=== PATIENT | female | born 1950 | race Hispanic/Latino ===

== ENCOUNTER 2019-01-10 18:53 | Inpatient (IN) | payer MEDICARE, SELFPAY ==
[2019-01-10 18:54] VITALS: BP 159/88; PULSE 72; RESP 16; TEMP 36.4; O2SAT 98; BMI 32.1
--- NOTE | 2019-01-10 19:17 | RAD_ITS ---
STUDY: X-RAY CHEST REASON FOR EXAM: Female, 68 years old. Chest pain TECHNIQUE: Single frontal view of the chest. COMPARISON: None. FINDINGS: The lungs are clear and expanded. There is no demonstrated pleural abnormality. Normal size heart. Normal mediastinum and lucien. Normal visualized pulmonary arteries. Normal visualized aortic arch and descending thoracic aorta. Normal visualized thoracic spine. Normal visualized ribs, clavicles, and shoulders. There is no demonstrated abnormality of the visualized soft tissue structures of the upper abdomen. RAD/Chest 1 View (Portable) IMPRESSION: Normal x-ray examination of the chest. Electronically Signed: Joel Robison MD at 20:14 EDT , Service support ,
--- NOTE | 2019-01-10 19:17 | EKG12_ITS ---
Test Reason : CP Blood Pressure : / mmHG Vent. Rate : 067 BPM Atrial Rate : 067 BPM P-R Int : 136 ms QRS Dur : 084 ms QT Int : 380 ms P-R-T Axes : 058 -05 032 degrees QTc Int : 401 ms Normal sinus rhythm with sinus arrhythmia Possible Left atrial enlargement Nonspecific T wave abnormality Abnormal ECG Confirmed by MELA EDWARDS, LOYD ([id number]), senior technical editor PENNY MENG ([id number]) on 01/14/2019 9:47:12 AM Referred By: Cruz Frausto Confirmed By:LUKE PLAZA MD
--- NOTE | 2019-01-10 19:19 | ED.DCSUM_ITS ---
- ER Visit Summary Date of Service: 01/10/19 Chief Complaint: Chest pain History of Present Illness: The patient is a 68 F presenting with chest pain. Patient states this started this morning. Pain has been intermittent throughout the day. Pain is substernal with no radiation. She does not recall anything that makes this better or worse. She has a history of hypertension. She is from [place] and is here for her 's work. Denies history of PE/DVT. She is not a smoker. Physical Examination: Vitals are stable. Patient is afebrile. Alert no acute distress. HEENT exam is unremarkable. Neck is supple. Lungs are clear and equal bilaterally. Heart is regular rate and rhythm. Abdomen is soft nontender nondistended. Extremities are unremarkable. Skin is warm and dry. No focal neurologic deficit. Remainder of exam is unremarkable. Emergency Department Course and Treatment: She was given aspirin, morphine on arrival. EKG is sinus rhythm rate of 67 with no acute ischemic changes. Chest x-ray shows no acute process. CBC, chemistries unremarkable. Troponin is negative. D-dimer normal. Patient is resting comfortably on reevaluation. Will discuss with hospitalist for admission. Disposition: Observation Impression: Chest pain This note was generated with shopandsave dictation software. It may contain incorrect words, spelling, and punctuation that were not noted in review of the chart prior to signing ED Disposition - Plan for ED Patient: Referrals: [facility] Doctor,Out of [NON-STAFF] -
[2019-01-10 19:25] VITALS: O2SAT 98
[2019-01-10] MEDS: Aspirin 81 MG TAB.CHEW 324 MG PO (19:29)
[2019-01-10 19:32] LABS: Absolute Lymphocyte Count 1.68 X10^3/uL (0.83-4.51); Basophil# 0.03 X10^3/uL; Basophil% 0.6 % (0-1); Eosinophil# 0.08 X10^3/uL; Eosinophils% 1.5 % (0-5); Hematocrit 43.4 % (37-47); Hemoglobin 14.7 g/dL (12.0-15.0); Lymphocyte # 1.68 X10^3/ul (4.0); Lymphocyte % 31.9 % (19-41); Mean Corp Hgb Conc 33.9 g/dL (32-36); Mean Corpuscular Hgb 29.1 pg (27.0-32.0); Mean Corpuscular Volume 85.9 fL (81-99); Mean Platelet Vol. 10.5 fl (6.2-12.0); Monocyte# 0.48 X10^3/uL; Monocyte% 9.1 % (0-10); NRBC Flagged by Analyzer 0 % (0-5); Neutrophil # 2.98 X10^3/uL (2.7-7.7); Neutrophil % 56.7 % (47-70); Platelet Count 215 K/mm3 (150-450); RBC Distribution Width CV 12.8 % (11.6-14.6); RBC Distribution Width SD 39.6 fl (35.1-43.9); Red Blood Count 5.05 M/mm3 (4.2-5.4); White Blood Count 5.3 K/mm3 (4.4-11.0)
[2019-01-10 19:40] LABS: D-Dimer Quantitative (DVT/PE) 0.47 FEU/ug/m (0.27-0.49)
[2019-01-10 19:47] LABS: Anion Gap 6 (5-15); BUN 11 mg/dL (7-18); BUN/Creat Ratio 12.2 RATIO (10-20); Calcium,Total 9.4 mg/dL (8.5-10.1); Chloride 104 mmol/L (98-107); EST Glomerular Filtration Rate 66 mL/min (>60); Est Glom Filt Rate - Afr Amer 80 mL/min (>60); Estimated Creatinine Clearance 42.97 ml/min; Glucose 123 mg/dL (74-106); Potassium 3.6 mmol/L (3.5-5.1); Sodium Level 139 mmol/L (136-145)
[2019-01-10 20:05] VITALS: BP 143/80; PULSE 63; RESP 15; O2SAT 98
[2019-01-10 21:15] VITALS: BP 137/95; PULSE 79; RESP 26; O2SAT 98
--- NOTE | 2019-01-10 21:47 | HP.PCM_ITS ---
Problem List (1) Atypical chest pain Status: Acute (2) Hypertension Status: Chronic (3) Hypothyroidism Status: Chronic History of Present Illness Date of Admission: 01/10/19 Chief Complaint: Chest pain The patient is a 68 year old F with history of hypertension came to ED with chest pain that is started today in the morning. Chest pain was midsternal, 9- 10/10 in intensity, localized felt like something sitting heavy on the chest associated with mild shortness of breath. Patient denies dizziness or near syncope or syncope. No diaphoresis. She also had cough mainly dry cough started yesterday. In ED, she got morphine 4 mg, aspirin 325 mg and her chest pain is much better 2-3/10 intensity She had chest pain that was different from today about 5 years ago but seems she did not seek any medical attention. In ED, initial vitals BP 159/88 heart rate 72 with no hypoxia, fever or tachypnea. EKG shows normal sinus rhythm with sinus arrhythmia at [address]-T changes suggestive of ischemia. [] Past Medical History Past Medical History (Chronic Problems): Chronic Problems Hypertension (Chronic) Hypothyroidism (Chronic) Allergies No Known Allergies Allergy (Verified 01/10/19 18:54) Home Medications: Ambulatory Orders Medication Instructions Recorded Amlodipine Besylate/Benazepril 1 ea PO DAILY 01/10/19 [Amlodipine-Benazepril 10-20 mg] Aspirin [Aspirin, Baby] 1 tab PO DAILY 01/10/19 Calcium, Magnesium And Zinc 1 tab PO DAILY 01/10/19 Cholecalciferol (Vitamin D3) 2,000 unit PO DAILY 01/10/19 [Vitamin D3] Escitalopram Oxalate 1 tab PO DAILY 01/10/19 Levothyroxine Sodium 50 mcg PO DAILY 01/10/19 Smoking Status: Never smoker Tobacco Use: Non-smoker Alcohol: None Drugs: None - *Family History Paternal History Items: No pertinent history - Parent of natural Review of Systems Constitutional: Denies: Chills, Fever, Weight Change HEENT: Denies: Head Aches, Sinus Congestion, Sinus Drainage Cardiovascular: Reports: Chest Pain, Chest Pressure. Denies: Palpitations Respiratory: Reports: Cough, Shortness of Breath, Shortness of breath at rest. Denies: Sputum production Gastrointestinal: Denies: Abdominal Pain, Nausea, Vomiting Genitourinary: Denies: Dysuria, Frequency, Hesitancy, Urgency Musculoskeletal: Denies: Joint Pain, Joint Tenderness Skin: Denies: Rash, Wounds Neurological: Denies: Numbness, Tingling, Focal weakness Psychiatric: Denies: Anxiety, Depression, Homicidal Ideations, Suicidal Ideations Hematologic/ Lymphatic: Denies: Easy Bruising, Easy Bleeding VTE Information - Inpt Only VTE Present on Admission: No VTE Mechan Device Prophylaxis: None VTE Pharm Prophylaxis ordered?: Yes Patient Problems: Active and Suspected Problems Atypical chest pain (Acute) - Physical Exam General: Alert, Oriented x3, Cooperative HEENT: Atraumatic, PERRLA, EOMI, Normocephalic Neck: Supple, No JVD, Negative Carotid Bruits Lungs: Clear to auscultation, Normal air movement, No rhonchi, No wheeze, No ral es Cardiovascular: Regular rate, Regular Rhythm, Normal S1, Normal S2, No murmurs Abdomen: Bowel Sounds Present, Soft, Non Tender, Non-Distended Extremities: No edema, Capillary Refill Less than 3 Seconds Skin: No rashes, No breakdown Musculoskeletal: No Tenderness to Palpation of Joints or Extremities Neurological: Cranial nerves II-XII grossly intact, Deep Tendon Reflexes 2+/4 and Symmetrical, Neuro grossly intact Psych/Mental Status: Normal Affect, Appropriate Vital Signs Temp Pulse Resp BP Pulse Ox 97.5 F L 79 26 H 137/95 H 98 01/10/19 18:54 01/10/19 21:15 01/10/19 21:15 01/10/19 21:15 01/10/19 21:15 Oxygen Delivery Method Room Air Weight: 164 lb 10.965 oz Body Mass Index (BMI) 32.1 Laboratory Tests Past 24 Hrs 01/10/19 01/10/19 01/10/19 19:03 19:03 19:03 WBC 5.3 RBC 5.05 Hgb 14.7 Hct 43.4 MCV 85.9 MCH 29.1 MCHC 33.9 RDW Std Deviation 39.6 RDW Coeff of Alma 12.8 Plt Count 215 MPV 10.5 Immature Gran % (Auto) 0.200 Neut % (Auto) 56.7 Lymph % (Auto) 31.9 [place] % (Auto) 9.1 Eos % (Auto) 1.5 Baso % (Auto) 0.6 Absolute Neuts (auto) 3.0 Absolute Lymphs (auto) 1.68 Nucleated RBC % 0 D-Dimer Quant (PE/DVT) 0.47 Sodium 139 Potassium 3.6 Chloride 104 Carbon Dioxide 29.0 Anion Gap 6 BUN 11 Creatinine 0.90 Estim Creat Clear Calc 42.97 Est GFR (MDRD) Af Amer 80 Est GFR (MDRD) Non-Af 66 BUN/Creatinine Ratio 12.2 Glucose 123 H Calcium 9.4 Troponin I < 0.015 Assessment/Plan All Active Problems Atypical chest pain (Acute) The patient is a 68 year old F with history of hypertension came to ED with chest pain that is started today in the morning. Chest pain was midsternal, 9- 10/10 in intensity, localized felt like something sitting heavy on the chest associated with mild shortness of breath. Patient denies dizziness or near syncope or syncope. No diaphoresis. She also had cough mainly dry cough started yesterday. In ED, she got morphine 4 mg, aspirin 325 mg and her chest pain is much better 2-3/10 intensity She had chest pain that was different from today about 5 years ago but seems she did not seek any medical attention. In ED, initial vitals BP 159/88 heart rate 72 with no hypoxia, fever or tachypnea. EKG shows normal sinus rhythm with sinus arrhythmia at [address]-T changes suggestive of ischemia. [] 1. Atypical chest pain associated shortness of breath: Patient is being admitted in PCU to rule out ACS. Serial troponin enzymes. Patient visiting [place] from [place]. She wants to go back to [place] tomorrow. Patient is advised for treadmill nuclear stress test on Saturday if cardiac enzymes are negative. Fasting profile tomorrow a.m. 2. Hypertension: Triage BP 159/88 heart rate 72. Most recent 137/95. Resume amlodipine benazepril home medication. 3. Other comorbidities include hypothyroidism with history of parathyroid adenoma in 1/4 glands status post parathyroidectomy: TSH and free T4 tomorrow a.m. 4. HypERglycemia: Glucose 123. A1c tomorrow a.m to rule out diabetes mellitus. 5. DVT prophylaxis: Moderate risk on Lovenox 40 mg subcu daily Code Visit OBSV E&M: 49349 Initial observation care L3
[2019-01-10 22:17] VITALS: PULSE 67; BMI 31.1; BMI 31.2
[2019-01-10 22:30] VITALS: BP 151/79; PULSE 68; RESP 16; TEMP 36.9; O2SAT 97
--- NOTE | 2019-01-10 22:47 | EKG12_ITS ---
Test Reason : ADMIT Blood Pressure : / mmHG Vent. Rate : 064 BPM Atrial Rate : 064 BPM P-R Int : 144 ms QRS Dur : 082 ms QT Int : 402 ms P-R-T Axes : 056 005 025 degrees QTc Int : 414 ms Normal sinus rhythm Nonspecific T wave abnormality Abnormal ECG When compared with ECG of 10-JAN-2019 18:59, MANUAL COMPARISON REQUIRED, DATA IS UNCONFIRMED Confirmed by MARTHA SALAZAR ([id number]), supervising film or videotape editor PENNY MENG ([id number]) on 01/14/2019 10:45:32 AM Referred By: Cruz Frausto Confirmed By:MARTHA SALAZAR
[2019-01-11] VITALS (12 sets, daily range): BP systolic 102–144; BP diastolic 63–84; PULSE 60–90; RESP 12–18; TEMP 36.6–37; O2SAT 92–98
[2019-01-11] MEDS: 0.9% Normal Saline 1,000 ML 100 ML IV (00:45)
[2019-01-11 06:52] LABS: Cholesterol 121 mg/dL (200); High Density Lipoprotein 70 mg/dL; T4 Free Direct 0.96 ng/dL (0.76-1.46); Thyroid Stim Hormone (TSH) 4.48 uIU/mL (0.358-3.74); Triglycerides 34 mg/dL; Very Low Density Lipoprotein 7 mg/dL (5-40)
[2019-01-11] MEDS: Levothyroxine 50 MCG Tablet PO (06:58)
[2019-01-11] MEDS: Enoxaparin 40 MG/0.4 ML Syringe SC (08:53)
[2019-01-11] MEDS: Escitalopram Oxalate 10 MG Tablet PO (08:54)
[2019-01-11] MEDS: Aspirin E.C. 81 MG Tablet PO (08:54)
[2019-01-11 09:00] LABS: Hemoglobin A1c 5.3 % (4.2-6.3)
--- NOTE | 2019-01-11 10:52 | PCM.PROGNOTE ---
<Gemma Whittington - Last Filed: 01/11/19 11:05> Patient Problems: Active and Suspected Problems Atypical chest pain (Acute) Subjective: Patient seen and examined. Denies further chest pain overnight. Plan for stress test in a.m. - Physical Exam General: Alert, Oriented x3, Cooperative HEENT: Atraumatic, PERRLA, EOMI, Normocephalic Neck: Supple, No JVD, Negative Carotid Bruits Lungs: Clear to auscultation, Normal air movement Cardiovascular: Regular rate, Regular Rhythm, Normal S1, Normal S2, No murmurs Abdomen: Bowel Sounds Present, Soft, Non Tender, Non-Distended Extremities: No clubbing, No cyanosis, No edema, Capillary Refill Less than 3 Seconds Skin: No rashes, No breakdown Musculoskeletal: No Tenderness to Palpation of Joints or Extremities Neurological: Cranial nerves II-XII grossly intact, Neuro grossly intact Psych/Mental Status: Normal Affect, Appropriate Vital Signs Temp Pulse Resp BP Pulse Ox 97.8 F 60 14 144/79 H 97 01/11/19 08:34 01/11/19 08:34 01/11/19 08:34 01/11/19 08:34 01/11/19 08:34 Oxygen Delivery Method Room Air Weight: 159 lb 13.362 oz Body Mass Index (BMI) 31.1 Intake and Output for Last 24 Hours 01/09/19 01/10/19 01/11/19 23:59 23:59 23:59 Intake Total 1338.33 / 1338.33 Balance 1338.33 / 1338.33 Microbiology Past 72 Hours 01/10/19 23:15 Respiratory Panel (PCR) - Final Interface Orders Laboratory Tests Past 24 Hrs 01/10/19 01/10/19 01/10/19 19:03 19:03 19:03 WBC 5.3 RBC 5.05 Hgb 14.7 Hct 43.4 MCV 85.9 MCH 29.1 MCHC 33.9 RDW Std Deviation 39.6 RDW Coeff of Alma 12.8 Plt Count 215 MPV 10.5 Immature Gran % (Auto) 0.200 Neut % (Auto) 56.7 Lymph % (Auto) 31.9 [place] % (Auto) 9.1 Eos % (Auto) 1.5 Baso % (Auto) 0.6 Absolute Neuts (auto) 3.0 Absolute Lymphs (auto) 1.68 Nucleated RBC % 0 D-Dimer Quant (PE/DVT) 0.47 Sodium 139 Potassium 3.6 Chloride 104 Carbon Dioxide 29.0 Anion Gap 6 BUN 11 Creatinine 0.90 Estim Creat Clear Calc 42.97 Est GFR (MDRD) Af Amer 80 Est GFR (MDRD) Non-Af 66 BUN/Creatinine Ratio 12.2 Glucose 123 H Hemoglobin A1c Calcium 9.4 Magnesium Troponin I < 0.015 Triglycerides Cholesterol LDL Cholesterol VLDL Cholesterol HDL Cholesterol TSH Free T4 01/10/19 01/10/19 01/11/19 19:03 23:17 01:50 WBC RBC Hgb Hct MCV MCH MCHC RDW Std Deviation RDW Coeff of [place] Plt Count MPV Immature Gran % (Auto) Neut % (Auto) Lymph % (Auto) [place] % (Auto) Eos % (Auto) Baso % (Auto) Absolute Neuts (auto) Absolute Lymphs (auto) Nucleated RBC % D-Dimer Quant (PE/DVT) Sodium Potassium Chloride Carbon Dioxide Anion Gap BUN Creatinine Estim Creat Clear Calc Est GFR (MDRD) Af Amer Est GFR (MDRD) Non-Af BUN/Creatinine Ratio Glucose Hemoglobin A1c Calcium Magnesium 2.0 Troponin I < 0.015 < 0.015 Triglycerides Cholesterol LDL Cholesterol VLDL Cholesterol HDL Cholesterol TSH Free T4 01/11/19 01/11/19 05:12 05:17 WBC RBC Hgb Hct MCV MCH MCHC RDW Std Deviation RDW Coeff of Alma Plt Count MPV Immature Gran % (Auto) Neut % (Auto) Lymph % (Auto) [place] % (Auto) Eos % (Auto) Baso % (Auto) Absolute Neuts (auto) Absolute Lymphs (auto) Nucleated RBC % D-Dimer Quant (PE/DVT) Sodium Potassium Chloride Carbon Dioxide Anion Gap BUN Creatinine Estim Creat Clear Calc Est GFR (MDRD) Af Amer Est GFR (MDRD) Non-Af BUN/Creatinine Ratio Glucose Hemoglobin A1c 5.3 Calcium Magnesium Troponin I < 0.015 Triglycerides 34 Cholesterol 121 LDL Cholesterol 44 VLDL Cholesterol 7 HDL Cholesterol 70 TSH 4.48 H Free T4 0.96 Medical Necessity - Tobacco Use Smoking Status: Never smoker Tobacco Use: Non-smoker Assessment/Plan All Active Problems Atypical chest pain (Acute) 1. Atypical chest pain, rule out ACS-EKG without ST-T changes. Troponin negative. Plan for stress test in a.m. 2. Hypertension-stable, continue home amlodipine, benazepril regimen. 3. Hypothyroidism-history of parathyroid adenoma status post parathyroidectomy. TSH 4.4. Free T4 normal. Continue home Synthroid regimen. 4. Depression-continue home escitalopram regimen. DVT prophylaxis-Lovenox subcu This patient was seen by HILLARY Prado under the supervision of Dr. Moore. <Agata Moore Melvina - Last Filed: 01/11/19 12:13> - Physical Exam Vital Signs Temp Pulse Resp BP Pulse Ox 97.8 F 60 14 144/79 H 97 01/11/19 08:34 01/11/19 08:34 01/11/19 08:34 01/11/19 08:34 01/11/19 08:34 Oxygen Delivery Method Room Air Weight: 159 lb 13.362 oz Body Mass Index (BMI) 31.1 Intake and Output for Last 24 Hours 01/09/19 01/10/19 01/11/19 23:59 23:59 23:59 Intake Total 1758.33 / 1758.33 Balance 1758.33 / 1758.33 Microbiology Past 72 Hours 01/10/19 23:15 Respiratory Panel (PCR) - Final Interface Orders Laboratory Tests Past 24 Hrs 01/10/19 01/10/19 01/10/19 19:03 19:03 19:03 WBC 5.3 RBC 5.05 Hgb 14.7 Hct 43.4 MCV 85.9 MCH 29.1 MCHC 33.9 RDW Std Deviation 39.6 RDW Coeff of Alma 12.8 Plt Count 215 MPV 10.5 Immature Gran % (Auto) 0.200 Neut % (Auto) 56.7 Lymph % (Auto) 31.9 [place] % (Auto) 9.1 Eos % (Auto) 1.5 Baso % (Auto) 0.6 Absolute Neuts (auto) 3.0 Absolute Lymphs (auto) 1.68 Nucleated RBC % 0 D-Dimer Quant (PE/DVT) 0.47 Sodium 139 Potassium 3.6 Chloride 104 Carbon Dioxide 29.0 Anion Gap 6 BUN 11 Creatinine 0.90 Estim Creat Clear Calc 42.97 Est GFR (MDRD) Af Amer 80 Est GFR (MDRD) Non-Af 66 BUN/Creatinine Ratio 12.2 Glucose 123 H Hemoglobin A1c Calcium 9.4 Magnesium Troponin I < 0.015 Triglycerides Cholesterol LDL Cholesterol VLDL Cholesterol HDL Cholesterol TSH Free T4 01/10/19 01/10/19 01/11/19 19:03 23:17 01:50 WBC RBC Hgb Hct MCV MCH MCHC RDW Std Deviation RDW Coeff of Alma Plt Count MPV Immature Gran % (Auto) Neut % (Auto) Lymph % (Auto) [place] % (Auto) Eos % (Auto) Baso % (Auto) Absolute Neuts (auto) Absolute Lymphs (auto) Nucleated RBC % D-Dimer Quant (PE/DVT) Sodium Potassium Chloride Carbon Dioxide Anion Gap BUN Creatinine Estim Creat Clear Calc Est GFR (MDRD) Af Amer Est GFR (MDRD) Non-Af BUN/Creatinine Ratio Glucose Hemoglobin A1c Calcium Magnesium 2.0 Troponin I < 0.015 < 0.015 Triglycerides Cholesterol LDL Cholesterol VLDL Cholesterol HDL Cholesterol TSH Free T4 01/11/19 01/11/19 05:12 05:17 WBC RBC Hgb Hct MCV MCH MCHC RDW Std Deviation RDW Coeff of Alma Plt Count MPV Immature Gran % (Auto) Neut % (Auto) Lymph % (Auto) [place] % (Auto) Eos % (Auto) Baso % (Auto) Absolute Neuts (auto) Absolute Lymphs (auto) Nucleated RBC % D-Dimer Quant (PE/DVT) Sodium Potassium Chloride Carbon Dioxide Anion Gap BUN Creatinine Estim Creat Clear Calc Est GFR (MDRD) Af Amer Est GFR (MDRD) Non-Af BUN/Creatinine Ratio Glucose Hemoglobin A1c 5.3 Calcium Magnesium Troponin I < 0.015 Triglycerides 34 Cholesterol 121 LDL Cholesterol 44 VLDL Cholesterol 7 HDL Cholesterol 70 TSH 4.48 H Free T4 0.96 Assessment/Plan Patient seen by Gemma Whittington NP-Janneth under my supervision Patient is a 68-year-old female admitted with a complaint of chest pain which is pressure-like, with no aggravating or relieving factors. She is never had chest pain in the past and does not have any cardiac history. Her risk factors include hypertension. Troponins x3 were negative and she is due for stress test tomorrow morning. Patient seen and examined. She has no complaints. She stated that she wanted to be discharged to go home to [place]. She is driving alone and an [address] to [place]. Patient counseled that would be advisable for her to stay for stress test to be done tomorrow to rule out any cardiac pathology before she is cleared to go on a long drive all the way to [place]. Patient expressed understanding. Review of systems otherwise negative. Labs and vitals reviewed. o/e: Vital Signs Height 5 ft Weight: 159 lb 13.362 oz Weight in Pounds 159.8 lbs Pulse Ox 97 Temperature 97.8 F Pulse Rate 60 Respiratory Rate 14 Blood Pressure [BP] 102/69 Blood Pressure 144/79 Blood Pressure Position [BP] Supine Blood Pressure Position Semi-Fowlers General: Alert, Oriented x3, Cooperative HEENT: Atraumatic, PERRLA, EOMI, Normocephalic Neck: Supple, No JVD, Negative Carotid Bruits Lungs: Clear to auscultation, Normal air movement Cardiovascular: Regular rate, Regular Rhythm, Normal S1, Normal S2, No murmurs Abdomen: Bowel Sounds Present, Soft, Non Tender, Non-Distended Extremities: No clubbing, No cyanosis, No edema, Capillary Refill Less than 3 Seconds Skin: No rashes, No breakdown Musculoskeletal: No Tenderness to Palpation of Joints or Extremities Neurological: Cranial nerves II-XII grossly intact, Neuro grossly intact Psych/Mental Status: Normal Affect, Appropriate Plan is for stress test tomorrow. Sublingual nitroglycerin as needed and p.o. aspirin 81 mg daily. Lipid panel was checked and was within normal limits. TSH is mildly elevated at 4.48 but free T4 0.96 indicating s subclinical hypothyroidism. To follow-up with her primary care doctor. Rest of management as per Gemma Whittington NURSE INFORMATICS EDUCATOR-C's note, which I have reviewed and endorsed. Code Visit OBSV E&M: 70755 Subsequent observation care L2
[2019-01-11] MEDS: amLODIPine 10 MG Tablet PO (12:02)
[2019-01-12] VITALS (8 sets, daily range): BP systolic 120–136; BP diastolic 62–80; PULSE 62–73; RESP 16–18; TEMP 36.4–36.7; O2SAT 94–96
[2019-01-12] MEDS: Levothyroxine 50 MCG Tablet PO (05:15)
[2019-01-12] MEDS: Aspirin E.C. 81 MG Tablet PO (05:16)
--- NOTE | 2019-01-12 05:55 | EKG12_ITS ---
Test Reason : AM EKG Blood Pressure : / mmHG Vent. Rate : 065 BPM Atrial Rate : 065 BPM P-R Int : 136 ms QRS Dur : 082 ms QT Int : 370 ms P-R-T Axes : 057 001 019 degrees QTc Int : 384 ms Normal sinus rhythm Nonspecific T wave abnormality Abnormal ECG Confirmed by PARMINDRE EDWARDS, JOLLY ([id number]), newspaper editor PENNY MENG ([id number]) on 01/14/2019 11:29:23 AM Referred By: Cruz Frausto Confirmed By:JOLLY ZURITA MD
[2019-01-12] MEDS: Escitalopram Oxalate 10 MG Tablet PO (10:12)
[2019-01-12] MEDS: amLODIPine 10 MG Tablet PO (10:12)
[2019-01-12] MEDS: Lisinopril 20 MG Tablet PO (10:13)
--- NOTE | 2019-01-12 10:38 | DCINST_ITS ---
- Discharge Diagnoses Current Active Problems: Current Active and Chronic Problems Atypical chest pain (Acute) Hypertension (Chronic) Hypothyroidism (Chronic) You will use the following diet at home:: Cardiac Discharge Activity: Return to Normal Activity Call your doctor if you observe: Shortness of breath, Dizziness, Fainting spells, Chest pain Allergies/Adverse Reactions: Allergies No Known Allergies Allergy (Verified 01/10/19 18:54) Medications to take at Discharge Amlodipine Besylate/Benazepril [Amlodipine-Benazepril 10-20 mg] 1 ea PO DAILY 01/10/19 Aspirin [Aspirin, Baby] 1 tab PO DAILY 01/10/19 Calcium, Magnesium And Zinc 1 tab PO DAILY 01/10/19 Cholecalciferol (Vitamin D3) [Vitamin D3] 2,000 unit PO DAILY 01/10/19 Escitalopram Oxalate 1 tab PO DAILY 01/10/19 Levothyroxine Sodium 50 mcg PO DAILY 01/10/19 Primary Care Physician: Jessica Doctor,Out of [NON-STAFF] - Please follow up with your Primary Care Physician in: 1 Week Test Results: Test results from this visit will be discussed in further detail at your follow- up appointment, if applicable. Proposed Discharge Date: 01/12/19
--- NOTE | 2019-01-12 11:00 | CASEMGMT ---
LIZA TO assessment: Face to Face with patient for initial transition planning/care coordination assessment. LIZA TO introduced self and role at [facility], pt voices understanding and consents to assessment at this time. Pt is sitting up in bed in no distress at this time. Pt is A/Ox4 at this time and answers all questions appropriately at this time. Care providers, pharmacy, and demographics verified at this time. PCP: Pt cannot remember name of PCP in [place]. Pt states she is here visiting her ex- who is working here right now. Specialists: Pt states no specialists. Preferred Pharmacy: [facility] Insurance: [facility] A/B Prescription Benefit: Pt states has Rx coverage. Living Will/HPOA: Pt states does not have LW/HPOA and declines info at this time. LNOK: Justine Joy, daughter Living Arrangements: Pt states lives alone normally on main level of home and states no concerns at home at this time. Pt states is independent with ADL's. Transportation: Pt states drives self and states no transportation concerns at this time. DME/HHC: Pt states no current DME or need for any at this time. Pt states no hx of HHC or SNF in the past. Pt states no concerns with going home at time of discharge. Pt states is currently unemployed. Pt states does not smoke or drink ETOH. Pt states no further concerns/needs at this time. CM to follow for any further discharge planning/needs. Advised pt to ask for CM if any further questions/concerns/needs arise, voices understanding. Pt Goal: Home Plan[place]
--- NOTE | 2019-01-12 11:29 | PHA.DC.MR ---
Pharmacy Service has performed discharge medication reconciliation for this patient. Home Medications Amlodipine Besylate/Benazepril [Amlodipine-Benazepril 10-20 mg] 1 ea PO DAILY 01/10/19 Aspirin [Aspirin, Baby] 1 tab PO DAILY 01/10/19 Calcium, Magnesium And Zinc 1 tab PO DAILY 01/10/19 Cholecalciferol (Vitamin D3) [Vitamin D3] 2,000 unit PO DAILY 01/10/19 Escitalopram Oxalate 1 tab PO DAILY 01/10/19 Levothyroxine Sodium 50 mcg PO DAILY 01/10/19 The patient's discharge medication list was reviewed for discrepancies and discrepancies were resolved.
--- NOTE | 2019-01-12 12:22 | STRESSREP_ITS ---
Stress Test Report Date: 01-12-19 Procedure: Exercise tolerance test/imaging study Indications: Chest pain Consent: Per the patient Procedure: The patient exercised on a Sonny protocol for 5 minutes completing Stage I and 2 minutes of Stage II achieving a peak heart rate of 141 bpm (92 % predicted maximal heart rate) with a peak blood pressure 164/72 mmHg and a peak MET capacity of 7 METs. The baseline ECG demonstrated normal sinus rhythm; nonspecific T wave abnormality. The peak exercise ECG demonstrated continued nonspecific T wave abnormality. There was an isolated PVC during exercise. The functional capacity was considered average. There was no complaint of chest discomfort during exercise or recovery. The examination was discontinued secondary to dyspnea and fatigue. Impression: 1. Technically adequate (percent predicted maximal heart rate greater than 85%) exercise tolerance test 2. Peak exercise ECG with continued nonspecific T wave abnormality 3. There was an isolated PVC during exercise 4. Nuclear images pending Myocardial perfusion imaging study: Technique: The patient was injected with 12.0 mCi of technetium 99m Cardiolite and subsequently rest SPECT Cardiolite nuclear imaging was obtained in the horizontal long, vertical long, and short axis views. The patient exercised on a Sonny protocol for 5 minutes completing Stage I and 2 minutes of Stage II achieving a peak heart rate of 141 bpm (92 % predicted maximal heart rate) with a peak blood pressure 164/72 mmHg and a peak MET capacity of 7 METs. The patient was injected with 36.0 mCi of technetium 99m Cardiolite and subsequently stress SPECT Cardiolite nuclear imaging was obtained in the horizontal long, vertical long, and short axis views. A gated Cardiolite study at peak stress was obtained. Interpretation: Rest and stress SPECT Cardiolite nuclear imaging status post realignment, normalization, and attenuation correction, demonstrates the appearance of relative uniform tracer uptake and myocardial perfusion appearing within normal limits. There is end systolic thickening and brightening. The gated Cardiolite study demonstrates myocardial thickening and inward wall motion. The reported LVEF is 77 %. Impression: 1. Rest and stress SPECT Cardiolite nuclear imaging demonstrate relative uniform tracer uptake and myocardial perfusion appearing within normal limits. 2. The gated Cardiolite study reports an LVEF of 77 %. This note was generated with [employer] software. It may contain incorrect words, spelling, and punctuation that were not noted in checking the note before signing.
--- NOTE | 2019-01-12 12:45 | NURSING ---
Clare Whittington NP in to see pt. Explained negative stress test results to pt. Pt DALIA for DC.
--- NOTE | 2019-01-12 12:52 | DS.PCM_ITS ---
<Gemma Whittington - Last Filed: 01/12/19 13:05> Discharge Date and Diagnosis Date of Admission: 01/10/19 Date of Discharge: 01/12/19 - Primary Discharge Diagnosis Active and Suspected Problems 1. Musculoskeletal chest pain, ACS ruled out 2. Hypertension 3. Hypothyroidism 4. Depression - Secondary Discharge Diagnosis Chronic Problems Hypertension (Chronic) Hypothyroidism (Chronic) Hospital Course and Treatment Imaging Results: Diagnostic Data Chest X-Ray 01/10/19 19:17 IMPRESSION: Normal x-ray examination of the chest. Electronically Signed: Joel Robison MD at 20:14 EDT , Service support , Operations: None Procedures: Stress test Summary of Care Provided: The patient is a 68 year old F admitted 01/10/2019 due to chest pain. 1. Musculoskeletal chest pain, ACS ruled out-EKG without ST-T changes. Troponin negative. Patient underwent stress test which was negative for ischemia. LVEF 77%. Patient traveling back to her home in [place]. Follow-up with PCP in 1 week. 2. Hypertension-stable, continue home amlodipine, benazepril regimen. 3. Hypothyroidism-history of parathyroid adenoma status post parathyroidectomy. TSH 4.4. Free T4 normal. Continue home Synthroid regimen. 4. Depression-continue home escitalopram regimen. General: Alert, Oriented x3, Cooperative HEENT: Atraumatic, PERRLA, EOMI, Normocephalic Neck: Supple, No JVD, Negative Carotid Bruits Lungs: Clear to auscultation, Normal air movement Cardiovascular: Regular rate, Regular Rhythm, Normal S1, Normal S2, No murmurs Abdomen: Bowel Sounds Present, Soft, Non Tender, Non-Distended Extremities: No clubbing, No cyanosis, No edema, Capillary Refill Less than 3 Seconds Skin: No rashes, No breakdown Musculoskeletal: No Tenderness to Palpation of Joints or Extremities Neurological: Cranial nerves II-XII grossly intact, Neuro grossly intact Psych/Mental Status: Normal Affect, Appropriate Patient seen and examined prior to discharge. Physical assessment as noted above. Patient is stable for discharge with follow up recommendations as noted above. This patient was seen by HILLARY Prado under the supervision of Dr. Mittal. - Physical Exam Vital Signs Temp Pulse Resp BP Pulse Ox 97.5 F L 64 18 136/80 H 96 01/12/19 10:10 01/12/19 11:00 01/12/19 10:10 01/12/19 10:10 01/12/19 10:10 Oxygen Delivery Method Room Air Weight: 159 lb 13.362 oz Body Mass Index (BMI) 31.1 Intake and Output for Last 24 Hours 01/10/19 01/11/19 01/12/19 23:59 23:59 23:59 Intake Total 2238.33 / 2538.33 780 / 780 Balance 2238.33 / 2538.33 780 / 780 Microbiology Past 72 Hours 01/10/19 23:15 Respiratory Panel (PCR) - Final Interface Orders Discharge Diet: Low fat/ Low Cholesterol Discharge Activity: Return to Normal Activity Call your doctor if you observe: Shortness of breath, Dizziness, Fainting spells, Chest pain Home Medications: Medications to take at Discharge Amlodipine Besylate/Benazepril [Amlodipine-Benazepril 10-20 mg] 1 ea PO DAILY 01/10/19 Aspirin [Aspirin, Baby] 1 tab PO DAILY 01/10/19 Calcium, Magnesium And Zinc 1 tab PO DAILY 01/10/19 Cholecalciferol (Vitamin D3) [Vitamin D3] 2,000 unit PO DAILY 01/10/19 Escitalopram Oxalate 1 tab PO DAILY 01/10/19 Levothyroxine Sodium 50 mcg PO DAILY 01/10/19 Primary Care Physician: [facility] Doctor,Out of [NON-STAFF] - Please follow up with your Primary Care Physician in: 1 Week Disposition: Home Minutes spent on discharge:: 35 Patient Condition:: Stable Medical Necessity - Tobacco Use Smoking Status: Never smoker Tobacco Use: Non-smoker Meaningful Use Info Meaningful Use Diagnoses (Choose all that apply): None applicable <Harvinder Mittal - Last Filed: 01/12/19 16:04> Discharge Date and Diagnosis - Secondary Discharge Diagnosis Chronic Problems Hypertension (Chronic) Hypothyroidism (Chronic) Hospital Course and Treatment Operations: None Procedures: Stress test Summary of Care Provided: Patient seen and examined independently. Data reviewed. I agree with the above note by the nurse practitioner. The patient is a 68 year old F presents with chest pain. Patient describes aida st pain is lower, midsternal. Nonradiating. Patient underwent a cardiac work- up, including a stress test, all of which was negative. Is my feeling that the chest pain was either reflux/esophageal spasm versus musculoskeletal. Reassurance was provided to the patient. Patient will be discharged home. Patient is here visiting from [place]. [] - Physical Exam General: Alert, No apparent distress HEENT: Atraumatic, Normocephalic Oral: Moist Mucosa, No Gingival or Mucosal Lesions/ Ulcerations Neck: No Nodes, Thyroid Normal Size and Texture Lungs: Clear to auscultation, Normal air movement, No rhonchi, No wheeze Cardiovascular: Regular rate, Regular Rhythm, Normal S1, Normal S2 Abdomen: Bowel Sounds Present, Soft, Non Tender, Non-Distended, No Hepato- splenomegaly Extremities: No edema, No Calf Tenderness Psych/Mental Status: Normal Affect, Appropriate Vital Signs Temp Pulse Resp BP Pulse Ox 36.4 C L 73 18 136/80 H 96 01/12/19 13:14 01/12/19 13:14 01/12/19 13:14 01/12/19 13:14 01/12/19 13:14 Oxygen Delivery Method Room Air Weight: 72.5 kg Body Mass Index (BMI) 31.1 Intake and Output for Last 24 Hours 01/10/19 01/11/19 01/12/19 23:59 23:59 23:59 Intake Total 2238.33 / 2538.33 780 / 780 Balance 2238.33 / 2538.33 780 / 780 Microbiology Past 72 Hours 01/10/19 23:15 Respiratory Panel (PCR) - Final Interface Orders Discharge Diet: Low fat/ Low Cholesterol Discharge Activity: Return to Normal Activity Call your doctor if you observe: Shortness of breath, Dizziness, Fainting spells, Chest pain Disposition: Home Minutes spent on discharge:: 35 Patient Condition:: Stable Medical Necessity - Tobacco Use Smoking Status: Never smoker Tobacco Use: Non-smoker Meaningful Use Info Meaningful Use Diagnoses (Choose all that apply): None applicable Code Visit OBSV E&M: 64489 Observation care discharge
== END 2019-01-12 10:39 | disposition home or self-care (01) | DRG 313 ==
LOC: ED 19:40 → PCU 22:13
PROVIDERS: Admitting Provider Internal Medicine; Emergency Provider Emergency Medicine; Referring Provider Internal Medicine
DX: R07.89 Other chest pain (principal); I10 Essential (primary) hypertension; E03.9 Hypothyroidism, unspecified; F32.9 Major depressive disorder, single episode, unspecified; Z79.82 Long term (current) use of aspirin; Z79.890 Hormone replacement therapy; Z79.899 Other long term (current) drug therapy
CPT/HCPCS: 36415; 71045; 78452; 80048; 80061; 83036; 83735; 84439; 84443; 84484; 85025; 85379; 87633; 93005; 93017; 99285; A9500; J7030; A4216